=== PATIENT | male | born 1955 | race Caucasian/White ===

== ENCOUNTER 2022-12-16 08:28 | Inpatient (IN) | payer MEDICARE, MEDICAID ==
[~2022-12-16] VITALS: Ht 177.8 cm; Wt 61.0 kg
[2022-12-16] VITALS (9 sets, daily range): PULSE 73–111; RESP 18–32; O2SAT 98
[2022-12-16] MEDS ORDERED: ETOMIDATE 2MG/ML 10ML VIAL IV ONE (08:45)
[2022-12-16] MEDS ORDERED: SODIUM CHLORIDE 0.9% 2,000 ML IV ONE (08:45)
[2022-12-16] MEDS ORDERED: PROPOFOL 200MG/20ML VIAL IV ONE (08:45)
[2022-12-16] MEDS ORDERED: SUCCINYLCHOLINE CHLORIDE 200MG/10ML IV ONE (08:45)
[2022-12-16] MEDS ORDERED: EPINEPHRINE 5 MG in SODIUM CHLORIDE 0.9% 245 ML IV PRN ×4 (09:15)
[2022-12-16] MEDS ORDERED: NOREPINEPHRINE 8MG/250ML PMX 250 ML IV PRN ×2 (09:15)
[2022-12-16 09:43] LABS: HEMATOCRIT. 33.5 % (42.0-52.0); HEMOGLOBIN. 9.8 g/dL (14.0-18.0); MEAN CORPUSCULAR HEMOGLOBIN 28.1 pg (28.0-32.0); MEAN CORPUSCULAR HGB CONC 29.3 g/dL (31.0-37.0); MEAN PLATELET VOLUME 7.6 fl (7.4-10.4); PLATELET 346 x1000/uL (130-400); RED BLOOD CELL COUNT 3.49 mill/uL (4.7-6.1); RED CELL DISTRIBUTION WIDTH 18.2 % (11.6-14.6); WHITE BLOOD COUNT 9.3 x1000/uL (4.5-11.0)
[2022-12-16] MEDS ORDERED: VASOPRESSIN 20 UNIT in SODIUM CHLORIDE 0.9% 99 ML IV PRN ×2 (09:45→10:00)
[2022-12-16 09:52] LABS: CHLORIDE 122 mEq/L (98-107); INDEX HEMOLYSI 2 (1-3); INDEX ICTERIC 1 (1-4); INDEX LIPEMIC 1 (1-3); SODIUM 151 mEq/L (136-145)
[2022-12-16 09:57] LABS: DIFFERENTIAL COMMENT 1
[2022-12-16 10:00] LABS: INR 1.5; PROTHROMBIN TIME 16.1 sec (9.6-11.0)
[2022-12-16 10:02] LABS: ALANINE AMINOTRANSFERASE 39 IU/L (13-61); ALBUMIN 1.5 g/dL (3.4-5.0); ASPARTATE AMINOTRANSFERASE 91 IU/L (15-37); BILIRUBIN TOTAL 0.6 mg/dL (0.1-1.0); CALCIUM 8.7 mg/dL (8.5-10.1); CARBON DIOXIDE 14 mEq/L (21-32); CREATININE 2.1 mg/dL (0.6-1.3); PROTEIN TOTAL 6.1 g/dL (6.0-8.3); UREA NITROGEN BLOOD 59 mg/dL (7-21)
[2022-12-16 10:13] LABS: POTASSIUM 7.3 mEq/L (3.5-5.1)
[2022-12-16 10:15] LABS: LACTIC ACID 13.5 mmol/L (0.4-2.0)
[2022-12-16 10:17] LABS: GLUCOSE 37 mg/dL (70-105)
[2022-12-16 10:19] LABS: TROPONIN I HIGH SENSITIVITY 102 ng/L (<78)
[2022-12-16] MEDS ORDERED: PHENYLEPHRINE 100 MG in DEXT 5% WATER 240 ML IV PRN ×4 (10:30)
[2022-12-16] MEDS ORDERED: SODIUM BICARBONATE 8.4% 1 MEQ/ML 50ML SYR IV NR ×3 (10:30→15:15)
[2022-12-16 10:40] LABS: CLARITY URINE CLOUDY (CLEAR); COLOR URINE DARK YELLOW (YELLOW); GLUCOSE URINE NEGATIVE (NEGATIVE); KETONES URINE NEGATIVE (NEGATIVE); LEUKOCYTE ESTERASE URINE TRACE (NEGATIVE); NITRITE URINE NEGATIVE (NEGATIVE); OCCULT BLOOD URINE 3+ (NEGATIVE); PH URINE 5.5 (4.5-8.0); PROTEIN URINE 2+ (NEGATIVE); SPECIFIC GRAVITY URINE 1.021 (1.005-1.030)
[2022-12-16] MEDS ORDERED: DEXTROSE 50% WATER 50ML SYRINGE IV ONE (10:45)
[2022-12-16 10:49] LABS: BG BASE EXCESS -21.9 mmol/L (-2.0-2.0); BG CARBOXYHEMOGLOBIN 0.3 % (0.5-1.5); BG DEOXYHEMOGLOBIN 0.3 % (0.0-5.0); BG FRACTION INSPIRED OXYGEN 100; BG HCO3 ACT 9.8 mmol/L (22.0-26.0); BG METHEMOGLOBIN 0.7 % (0.0-1.5); BG OXYGEN SATURATION 99.7 % (92.0-98.5); BG OXYHEMOGLOBIN 98.7 % (94.0-97.0); BG PCO2 49.9 mmHg (35.0-45.0); BG PH 6.913 (7.350-7.450); BG PO2 361.2 mmHg (75.0-100.0); BG SAMPLE SITE LEFT FEMORAL; BG TOTAL HEMOGLOBIN 9.3 g/dL (12.0-18.0); BG VENT MODE VENT - AC
[2022-12-16 10:55] LABS: SQUAMOUS EPITHELIAL CELL URINE 1+ /lpf (RARE/1+)
[2022-12-16 10:56] LABS: BACTERIA URINE 1+; RBC URINE 50-100 /hpf (0-2)
[2022-12-16 10:58] LABS: WBC URINE 0-2 /hpf (0-2)
[2022-12-16 11:07] LABS: TROPONIN I HIGH SENSITIVITY 92 ng/L (<78)
[2022-12-16] MEDS: IPRATROPIUM/ALBUTEROL 0.5-3(2.5)MG/3ML NEB HHN SCH ×2 (11:15→20:15)
[2022-12-16] MEDS ORDERED: PIPERACILLIN/TAZ 3.375G PREMIX 50 ML IV NR (11:30)
[2022-12-16 11:42] LABS: *AMPHETAMINES SCREEN URINE NEGATIVE (NEGATIVE); *BARBITURATES SCREEN URINE NEGATIVE (NEGATIVE); *BENZODIAZEPINES SCREEN URINE NEGATIVE (NEGATIVE); *COCAINE SCREEN URINE NEGATIVE (NEGATIVE); CANNABINOID URINE SCREEN NEGATIVE (NEGATIVE); ECSTASY MDMA SCREEN URINE NEGATIVE (NEGATIVE); METHADONE URINE SCREEN NEGATIVE (NEGATIVE); OPIATES URINE SCREEN NEGATIVE (NEGATIVE); PHENCYCLIDINE URINE SCREEN NEGATIVE (NEGATIVE)
[2022-12-16] MEDS ORDERED: SODIUM BICARBONATE 150 MEQ in DEXTROSE 5% WATER 1,000 ML IV SCH (12:00)
[2022-12-16] MEDS ORDERED: VANCOMYCIN 1.25GM PMX (XELLIA) 250 ML IV NR (12:00)
[2022-12-16] MEDS ORDERED: TRAMADOL 50MG TABLET PO PRN (12:30)
[2022-12-16] MEDS ORDERED: DEXTROSE 5% WATER 1,000 ML IV ONE (12:30)
[2022-12-16] MEDS ORDERED: IPRATROPIUM/ALBUTEROL 0.5-3(2.5)MG/3ML NEB NEB PRN (12:30)
[2022-12-16] MEDS ORDERED: ACETAMINOPHEN 650MG SUPP PR PRN (12:30)
[2022-12-16] MEDS ORDERED: PIPERACILLIN/TAZOBACTAM 3.375 G in DEXTROSE 5% WATER 50 ML IV SCH ×2 (12:30→20:00)
[2022-12-16] MEDS ORDERED: ONDANSETRON HCL 4MG/2ML INJ IV PRN (12:30)
[2022-12-16] MEDS ORDERED: PANTOPRAZOLE SODIUM 40 MG/VIAL IV SCH (12:30)
[2022-12-16 12:43] LABS: BG BASE EXCESS -15.7 mmol/L (-2.0-2.0); BG CARBOXYHEMOGLOBIN 0.3 % (0.5-1.5); BG DEOXYHEMOGLOBIN 12.3 % (0.0-5.0); BG FRACTION INSPIRED OXYGEN 60; BG HCO3 ACT 12.8 mmol/L (22.0-26.0); BG METHEMOGLOBIN 0.4 % (0.0-1.5); BG OXYGEN SATURATION 87.6 % (92.0-98.5); BG PCO2 40.9 mmHg (35.0-45.0); BG PH 7.114 (7.350-7.450); BG PO2 73.8 mmHg (75.0-100.0); BG SAMPLE SITE LEFT BRACHIAL; BG TOTAL HEMOGLOBIN 9.6 g/dL (12.0-18.0); BG VENT MODE VENT - AC
[2022-12-16 14:27] LABS: CHLORIDE 123 mEq/L (98-107); INDEX HEMOLYSI 1 (1-3); INDEX ICTERIC 1 (1-4); INDEX LIPEMIC 1 (1-3); POTASSIUM 5.3 mEq/L (3.5-5.1); SODIUM 155 mEq/L (136-145)
[2022-12-16] MEDS: HYDROCORTISONE SOD SUCCINATE 100 MG/2 ML VIAL IV SCH ×2 (14:40→23:53)
[2022-12-16 14:44] LABS: BILIRUBIN TOTAL 1.3 mg/dL (0.1-1.0); CALCIUM 6.8 mg/dL (8.5-10.1); CARBON DIOXIDE 11 mEq/L (21-32); GLUCOSE 67 mg/dL (70-105); PROTEIN TOTAL 4.6 g/dL (6.0-8.3); UREA NITROGEN BLOOD 56 mg/dL (7-21)
[2022-12-16 15:03] LABS: D-DIMER 12.63 mg/L FEU (<0.50)
[2022-12-16] MEDS ORDERED: DOPAMINE 400MG/250ML PREMIX 250 ML IV PRN (15:15)
[2022-12-16 15:34] LABS: ANISOCYTOSIS 1+; PLATELET ESTIMATE NORMAL
[2022-12-16 15:46] LABS: TROPONIN I HIGH SENSITIVITY 175 ng/L (<78)
[2022-12-16 15:51] LABS: ALANINE AMINOTRANSFERASE 699 IU/L (13-61)
[2022-12-16 15:57] LABS: ASPARTATE AMINOTRANSFERASE 2640 IU/L (15-37)
[2022-12-16] MEDS ORDERED: DEXTROSE 50% WATER 50ML SYRINGE IV NR (17:15)
[2022-12-16] MEDS ORDERED: DEXTROSE 10% WATER 500 ML IV ONE (18:00)
[2022-12-16] MEDS ORDERED: NOREPINEPHRINE 32 MG in DEXT 5% WATER 218 ML IV PRN ×4 (18:00)
[2022-12-16] MEDS ORDERED: EPINEPHRINE 10 MG in SODIUM CHLORIDE 0.9% 240 ML IV PRN ×4 (18:15)
[2022-12-16] MEDS ORDERED: ENOXAPARIN 30MG/0.3ML SYR SUBCUT SCH (21:00)
[2022-12-16 22:39] LABS: BG FRACTION INSPIRED OXYGEN 100; BG HCO3 ACT 67.5 mmol/L (22.0-26.0); BG PCO2 142.6 mmHg (35.0-45.0); BG PH 7.293 (7.350-7.450); BG PO2 < 30.3 mmHg (75.0-100.0); BG SAMPLE SITE RIGHT RADIAL; BG TOTAL HEMOGLOBIN < 4.5 g/dL (12.0-18.0); BG VENT MODE VENT - AC
[2022-12-17 00:03] VITALS: BP 76/33; TEMP 98
[2022-12-17 00:25] VITALS: PULSE 77; RESP 30
[2022-12-17] MEDS ORDERED: VANCOMYCIN 750MG PREMIX 150 ML IV SCH (09:00)
== END 2022-12-17 00:24 | DRG 871 ==
LOC: ER 08:28 → MICUSO 11:17
PROVIDERS: ADMIT Hospitalist; ATTEND Hospitalist
PROC: 0BH18EZ Insertion of Endotracheal Airway into Trachea, Via Natural or Artificial Opening Endoscopic (ICD-10-PCS; principal; 2022-12-16)
PROC: 5A1935Z Respiratory Ventilation, Less than 24 Consecutive Hours (ICD-10-PCS; 2022-12-16)
DX: A41.9 Sepsis, unspecified organism (principal); E43 Unspecified severe protein-calorie malnutrition; J96.01 Acute respiratory failure with hypoxia; R65.21 Severe sepsis with septic shock; J96.02 Acute respiratory failure with hypercapnia; J18.9 Pneumonia, unspecified organism; E87.4 Mixed disorder of acid-base balance; G93.40 Encephalopathy, unspecified; N17.9 Acute kidney failure, unspecified; D68.9 Coagulation defect, unspecified; R64 Cachexia; Z68.1 Body mass index [BMI] 19.9 or less, adult; E87.0 Hyperosmolality and hypernatremia; G40.909 Epilepsy, unspecified, not intractable, without status epilepticus; F20.9 Schizophrenia, unspecified; E11.51 Type 2 diabetes mellitus with diabetic peripheral angiopathy without gangrene; J44.9 Chronic obstructive pulmonary disease, unspecified; E11.649 Type 2 diabetes mellitus with hypoglycemia without coma; E87.5 Hyperkalemia; Z79.4 Long term (current) use of insulin; I10 Essential (primary) hypertension
CPT/HCPCS: 31500; 36415; 36600; 71045; 80053; 80305; 81003; 82375; 82805; 82962; 83605; 84145; 84484; 85025; 85362; 85379; 85384; 87077; 93005; 93970; 94002; 94640; 99291; A6261; C9113; J1265; J1650; J1720; J2370; J2543; J3370; J3490; J7030; J7050; J7060; J7070